=== PATIENT | female | born 1945 | race Caucasian/White ===

== ENCOUNTER 2020-08-12 12:53 | Emergency (ER) | payer MEDICARE, OTHER ==
[~2020-08-12] VITALS: Ht 167.6 cm; Wt 69.0 kg
[2020-08-12] MEDS ORDERED: TRAZ100 PO (13:28)
[2020-08-12] MEDS ORDERED: Cymbalta20 MG PO (13:28)
[2020-08-12] MEDS ORDERED: GABA300 PO (13:28)
[2020-08-12 13:35] LABS: BASOPHILS ABSOLUTE AUTO 0.02 K/mm3 (0.00-0.23); BASOPHILS PERCENT AUTO 0 % (0-2); EOSINOPHILS ABSOLUTE AUTO 0.06 K/mm3 (0.00-0.68); EOSINOPHILS PERCENT AUTO 1 % (0-6); Hematocrit 38.4 % (33.0-51.0); Hemoglobin 13.3 g/dL (11.5-16.0); IMMATURE GRAN ABSOLUTE AUTO 0.03 K/mm3 (0.00-0.10); IMMATURE GRAN PERCENT AUTO 0 % (0-1); LYMPHOCYTES ABSOLUTE AUTO 0.38 K/mm3 (0.84-5.20); LYMPHOCYTES PERCENT AUTO 5 % (21-46); MONOCYTES ABSOLUTE AUTO 0.42 K/mm3 (0.16-1.47); MONOCYTES PERCENT AUTO 6 % (4-13); Mean Corpuscular HGB 32.1 pg (26.0-34.0); Mean Corpuscular HGB Conc 34.6 g/dL (31.5-36.5); Mean Corpuscular Volume 93 fL (80-100); Mean Platelet Volume 10.9 fL (9.1-12.4); NEUTROPHILS ABSOLUTE AUTO 6.27 K/mm3 (1.96-9.15); NEUTROPHILS PERCENT AUTO 87 % (41-73); Platelet Count 241 K/mm3 (150-400); RDW Coefficient Variation 12.6 % (11.7-14.2); Red Blood Cell Count 4.14 M/mm3 (3.80-5.20); White Blood Cell Count 7.18 K/mm3 (4.00-11.30)
[2020-08-12 13:49] LABS: Alanine Aminotransfer (ALT/SGP 30 U/L (12-78); Albumin, Blood 3.6 g/dL (3.4-5.0); Alk Phos 74 U/L (50-136); Anion Gap 8 mmol/L (6-16); Aspartate Aminotrans (AST/SGOT 30 U/L (12-37); Bilirubin, Total 0.6 mg/dL (0.1-1.0); Blood Urea Nitrogen 11 mg/dL (8-24); Bun/Creatinine Ratio 14.1 (12.0-20.0); CO2, Blood 23 mmol/L (21-32); Calcium, Blood 9.1 mg/dL (8.5-10.1); Chloride, Blood 104 mmol/L (98-108); Creatinine, Blood 0.78 mg/dL (0.40-1.00); Globulin, Blood 3.6 g/dL (2.2-4.0); Glomerular Filtration Rate >60 (60-); Glucose, Blood 112 mg/dL (70-99); Potassium, Blood 3.8 mmol/L (3.5-5.5); Sodium, Blood 135 mmol/L (136-145); Total Protein, Blood 7.2 g/dL (6.4-8.2)
[2020-08-12 14:33] LABS: Source, Urine Clean Catch
[2020-08-12 14:36] LABS: Appearance, Urine Hazy (Clear); Bilirubin, Urine Neg (Neg); Blood, Urine 2+ (Neg); Color, Urine Yellow (P-Yellow); Glucose Qualitative, Urine Neg (Neg); Ketones, Urine Neg (Neg); Leukocyte Esterase, Urine 1+ (Neg); Nitrite, Urine Pos (Neg); Protein, Urine 1+ (Neg); Urobilinogen, Urine NORM (Normal)
[2020-08-12 14:43] LABS: Bacteria Many /hpf; Red Blood Cells, Urine Not Seen /hpf (0-2); Squamous Epithelial Cells Not Seen /hpf (Few); White Blood Cells, Urine 0-2 /hpf (0-5)
[2020-08-12] MEDS ORDERED: CEFP200 PO (15:42)
== END 2020-08-12 16:21 | disposition home or self-care (01) ==
LOC: ER 12:53
PROVIDERS: Emergency Medicine
DX: N39.0 Urinary tract infection, site not specified (principal); Z79.899 Other long term (current) drug therapy
CPT/HCPCS: 36415; 70450; 71045; 80053; 81001; 82947; 85025; 87077; 87086; 87186; 93005; 93010; 99285-25; A9270

== ENCOUNTER 2020-08-23 16:07 | Observation (INO) | payer OTHER, MEDICARE ==
[~2020-08-23] VITALS: Ht 165.1 cm; Wt 72.4 kg
[~2020-08-23 16:07] MED LIST: CEFP200 PO; Cymbalta20 MG PO; GABA300 PO; TRAZ100 PO
[2020-08-23 16:45] LABS: BASOPHILS ABSOLUTE AUTO 0.09 K/mm3 (0.00-0.23); BASOPHILS PERCENT AUTO 1 % (0-2); EOSINOPHILS ABSOLUTE AUTO 0.25 K/mm3 (0.00-0.68); EOSINOPHILS PERCENT AUTO 2 % (0-6); Hematocrit 37.4 % (33.0-51.0); Hemoglobin 12.3 g/dL (11.5-16.0); IMMATURE GRAN ABSOLUTE AUTO 0.11 K/mm3 (0.00-0.10); IMMATURE GRAN PERCENT AUTO 1 % (0-1); LYMPHOCYTES ABSOLUTE AUTO 1.01 K/mm3 (0.84-5.20); LYMPHOCYTES PERCENT AUTO 9 % (21-46); MONOCYTES ABSOLUTE AUTO 0.48 K/mm3 (0.16-1.47); MONOCYTES PERCENT AUTO 4 % (4-13); Mean Corpuscular HGB 30.8 pg (26.0-34.0); Mean Corpuscular HGB Conc 32.9 g/dL (31.5-36.5); Mean Corpuscular Volume 94 fL (80-100); Mean Platelet Volume 10.7 fL (9.1-12.4); NEUTROPHILS ABSOLUTE AUTO 9.42 K/mm3 (1.96-9.15); NEUTROPHILS PERCENT AUTO 83 % (41-73); Platelet Count 507 K/mm3 (150-400); RDW Coefficient Variation 12.8 % (11.7-14.2); RDW Standard Deviation 43.9 fL (35.1-46.3); White Blood Cell Count 11.36 K/mm3 (4.00-11.30)
[2020-08-23 16:47] LABS: Source, Urine Clean Catch
[2020-08-23 16:49] LABS: Appearance, Urine Clear (Clear); Bilirubin, Urine Neg (Neg); Blood, Urine Neg (Neg); Color, Urine Yellow (P-Yellow); Glucose Qualitative, Urine Neg (Neg); Ketones, Urine Neg (Neg); Leukocyte Esterase, Urine Neg (Neg); Nitrite, Urine Neg (Neg); Protein, Urine Neg (Neg); Specific Gravity, Urine 1.005 (1.003-1.022); Urobilinogen, Urine NORM (Normal)
[2020-08-23 16:59] LABS: Alanine Aminotransfer (ALT/SGP 19 U/L (12-78); Albumin, Blood 2.5 g/dL (3.4-5.0); Albumin/Globulin Ratio 0.6 (0.8-1.8); Alk Phos 68 U/L (50-136); Anion Gap 7 mmol/L (6-16); Aspartate Aminotrans (AST/SGOT 15 U/L (12-37); Bilirubin, Total 0.6 mg/dL (0.1-1.0); Blood Urea Nitrogen 17 mg/dL (8-24); Bun/Creatinine Ratio 19.5 (12.0-20.0); CO2, Blood 26 mmol/L (21-32); Calcium, Blood 9.2 mg/dL (8.5-10.1); Chloride, Blood 104 mmol/L (98-108); Creatinine, Blood 0.87 mg/dL (0.40-1.00); Globulin, Blood 4.1 g/dL (2.2-4.0); Glomerular Filtration Rate >60 (60-); Glucose, Blood 93 mg/dL (70-99); Potassium, Blood 3.7 mmol/L (3.5-5.5); Sodium, Blood 137 mmol/L (136-145); Total Protein, Blood 6.6 g/dL (6.4-8.2); Troponin I <0.015 ng/mL (0.000-0.040)
[2020-08-23 18:32] LABS: International Normalized Ratio 0.99; Prothrombin Time Results 10.6 Sec (9.7-11.5)
[2020-08-23] MEDS ORDERED: ALEN70 PO (19:01)
[2020-08-23] MEDS ORDERED: CETI5 PO (19:01)
[2020-08-23] MEDS ORDERED: VITAMIN D31000 UNI1 PO (19:01)
[2020-08-23] MEDS ORDERED: Vitamin B-121000 MCG PO (19:01)
[2020-08-23] MEDS ORDERED: Flonase 0.05% N16 GM (19:02)
--- NOTE | 2020-08-24 00:47 | NUR ---
ADMIT ASSESSMENT PT ADMITTED TO ICU , PCU STATUS. PT ARRIVED VIA GURNEY. TRANSFERED TO BED BY STAFF WITH SLIDER SHEET. PT AWAKE, A&O. LUNGS CLEAR ON ROOMAIR. RESP EVEN AND NONLABORED. DENIES SOB OR COUGH. HEART RATE JAELYN IN THE 50'S, BP STABLE. PT TURNING AND MOVING SELF IN BED. PT C/O LOW BACK PAIN 01/03 STATES,"IT IS STARTING TO GET BAD AGAIN". PT MED WITH OXYCODONE. IV 20G TO LEFT AC WITH NS AND 20 KCL AT 75 ML/HR. BT+ ABD SOFT AND NONTENDER DENIES N/V.
[2020-08-24 03:42] LABS: BASOPHILS ABSOLUTE AUTO 0.09 K/mm3 (0.00-0.23); BASOPHILS PERCENT AUTO 1 % (0-2); EOSINOPHILS ABSOLUTE AUTO 0.25 K/mm3 (0.00-0.68); EOSINOPHILS PERCENT AUTO 2 % (0-6); Hematocrit 33.5 % (33.0-51.0); IMMATURE GRAN PERCENT AUTO 1 % (0-1); LYMPHOCYTES ABSOLUTE AUTO 0.99 K/mm3 (0.84-5.20); LYMPHOCYTES PERCENT AUTO 8 % (21-46); MONOCYTES ABSOLUTE AUTO 0.55 K/mm3 (0.16-1.47); MONOCYTES PERCENT AUTO 5 % (4-13); Mean Corpuscular HGB 30.5 pg (26.0-34.0); Mean Corpuscular HGB Conc 32.8 g/dL (31.5-36.5); Mean Corpuscular Volume 93 fL (80-100); Mean Platelet Volume 10.7 fL (9.1-12.4); NEUTROPHILS ABSOLUTE AUTO 10.18 K/mm3 (1.96-9.15); NEUTROPHILS PERCENT AUTO 84 % (41-73); Platelet Count 463 K/mm3 (150-400); RDW Coefficient Variation 12.5 % (11.7-14.2); RDW Standard Deviation 42.8 fL (35.1-46.3); Red Blood Cell Count 3.61 M/mm3 (3.80-5.20); White Blood Cell Count 12.16 K/mm3 (4.00-11.30)
[2020-08-24 04:06] LABS: Anion Gap 8 mmol/L (6-16); Blood Urea Nitrogen 16 mg/dL (8-24); Bun/Creatinine Ratio 19.6 (12.0-20.0); CO2, Blood 24 mmol/L (21-32); Calcium, Blood 8.4 mg/dL (8.5-10.1); Chloride, Blood 105 mmol/L (98-108); Creatinine, Blood 0.82 mg/dL (0.40-1.00); Glomerular Filtration Rate >60 (60-); Glucose, Blood 104 mg/dL (70-99); Potassium, Blood 3.5 mmol/L (3.5-5.5); Sodium, Blood 137 mmol/L (136-145); Troponin I <0.015 ng/mL (0.000-0.040)
--- NOTE | 2020-08-24 04:14 | NUR ---
PAIN MEDS PT STATES,"I JUST CAN'T GET COMFORTABLE". ASSISTED WITH REPOSITIONING. PT STATES,"MY LOW BACK AND HIP ARE REALLY HURTING. THE BED IS TO HARD". PT MED WITH TYLENOL AND OXYCODONE. ALSO, ADJUSTED FIRMNESS OF BED. PT STATES,"THAT IS BETTER ON MY HIP ALREADY".
--- NOTE | 2020-08-24 04:21 | NUR ---
SPO2 PT SPO2 DOWN TO 87% WHILE SLEEPING, PLACED PT ON 2 LITES VIA NC. SPO2 UP TO 95%.
--- NOTE | 2020-08-24 05:50 | NUR ---
SHIFT SUMMARY PT ADMITTED TO ICU 09, PCU STATUS. DX WITH BRADYCARDIA. PT A/O. UP TO BSC WITH STANDBY ASSIST. HEART RATE 50'S WITH STABLE BP. PT TURING AND MOVING SELF IN BED. MED WITH TYLENOL AND OXYCODONE FOR LOW BACK PAIN DURING THE NIGHT WITH GOOD RESULTS. PT NPO FOR POSSIBLE PACEMAKER TODAY. MRI SCREENING DONE. NO ACUTE CHANGE DURING THE NIGHT. REPORT TO ON COMING NURSE.
--- NOTE | 2020-08-24 10:06 | NUR ---
ASSUMING CARE OF PT. REPORT FROM NICKI DOVE. PASTORAL CARE AT BEDSIDE NOW. DR. SHANKS CALLED AND SAID PT CAN EAT BREAKFAST AND WANTS A REPEAT EKG. IF PT GOES TO GET PACEMAKER IT WON'T BE UNTIL LATER THIS AFTERNOON.
--- NOTE | 2020-08-24 11:55 | NUR ---
[facility] care visit conducted. Patient is sitting up in bed and immediately explains about her recent medical issues and says that she is seeing spider webbs and fishing nets coming down around her face. Patient is very clear about those hallucinations not being real. 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 She also talks about her two husbands that and the good relationship she has now with Clifford. She also distinguishes between her estranged older son and her younger son in [facility] in whom she is very close. She shares about her radha and how meaningful it is to her and how she gains strength from it. Patient tells me that she is nervous about what the tests might discover but she is hopeful. I listen empathically, reinforce helpful attitudes and practices and provide pastoral correctional classification counselor and prayer. Patient responds well and shows signs of increased peace and being encouraged in her radha. I will continue to assist patient in coping emotionally/spiritually with the medical issues.
--- NOTE | 2020-08-24 17:43 | NUR ---
SUMMARY PT RESTING IN BED. HAS BEEN UP AND DOWN OOB ALL DAY. NO SYNCOPAL EPISODES. STILL C/O VISION BEING "POOR". PT DESCRIBES IT IF THERE IS A NET IN FRONT OF HER FACE. DR. SHANKS IS UNSURE IF PT WILL NEED A PACEMAKER. AT THIS POINT PT WILL BE OBSERVED UNTIL THURSDAY AND CONTINUE ABX. IF PT HAS ANY SYNCOPAL EPISODES OR SYMPTOMATIC BRADYCARDIA THEN SHE WILL GET A PACEMAKER. NO OTHER CHANGES THIS SHIFT.
--- NOTE | 2020-08-24 19:30 | NUR ---
ASSUMED PT CARE: UPON ENTERING ROOM, PT FOUND TO BE OUT OF BED & WALKING TOWARDS THE TOILET. +EVEN & STEADY GAIT, HOWEVER WHEN REMINDED OF THE IMPORTANCE OF CALLING FOR ASSISTANCE WHEN NEEDING TO USE RESTROOM, PT NODDED EMPHATICALLY "YEAH, YEAH, THEN HELP ME". PT DENIES ANY DIZZINESS OR SOB WHEN AMBULATING. BACK TO BED W/OUT INCIDENT & RADHA BED RAILS RAISED FOR SAFETY. PT IS A&O, APPROPRIATELY INTERACTIVE. CONTINUOUS BOMBSIGHT SPECIALIST IN PLACE, HR 60s. KCl + NS INFUSING W/OUT S/Sx INFILTRATION. WILL CONTINUE TO MONITOR & REPORT APPROPRIATE.
[2020-08-25 02:45] LABS: Source, Urine Clean Catch
[2020-08-25 02:48] LABS: Bilirubin, Urine Neg (Neg); Blood, Urine Neg (Neg); Glucose Qualitative, Urine Neg (Neg); Ketones, Urine Neg (Neg); Leukocyte Esterase, Urine 3+ (Neg); Nitrite, Urine Neg (Neg); Protein, Urine Neg (Neg); Urobilinogen, Urine NORM (Normal)
[2020-08-25 03:11] LABS: Appearance, Urine Hazy (Clear); Color, Urine Yellow (P-Yellow)
[2020-08-25 03:12] LABS: Bacteria Mod /hpf; Red Blood Cells, Urine Not Seen /hpf (0-2); Squamous Epithelial Cells Many /hpf (Few); White Blood Cells, Urine 50-100 /hpf (0-5)
[2020-08-25 03:39] LABS: BASOPHILS ABSOLUTE AUTO 0.12 K/mm3 (0.00-0.23); BASOPHILS PERCENT AUTO 1 % (0-2); EOSINOPHILS ABSOLUTE AUTO 0.21 K/mm3 (0.00-0.68); EOSINOPHILS PERCENT AUTO 2 % (0-6); Hematocrit 32.5 % (33.0-51.0); Hemoglobin 10.3 g/dL (11.5-16.0); IMMATURE GRAN ABSOLUTE AUTO 0.15 K/mm3 (0.00-0.10); IMMATURE GRAN PERCENT AUTO 2 % (0-1); LYMPHOCYTES ABSOLUTE AUTO 1.35 K/mm3 (0.84-5.20); LYMPHOCYTES PERCENT AUTO 15 % (21-46); MONOCYTES ABSOLUTE AUTO 0.52 K/mm3 (0.16-1.47); MONOCYTES PERCENT AUTO 6 % (4-13); Mean Corpuscular HGB 29.5 pg (26.0-34.0); Mean Corpuscular HGB Conc 31.7 g/dL (31.5-36.5); Mean Corpuscular Volume 93 fL (80-100); Mean Platelet Volume 10.3 fL (9.1-12.4); NEUTROPHILS ABSOLUTE AUTO 6.42 K/mm3 (1.96-9.15); NEUTROPHILS PERCENT AUTO 73 % (41-73); Platelet Count 451 K/mm3 (150-400); RDW Coefficient Variation 12.8 % (11.7-14.2); RDW Standard Deviation 43.9 fL (35.1-46.3); Red Blood Cell Count 3.49 M/mm3 (3.80-5.20); White Blood Cell Count 8.77 K/mm3 (4.00-11.30)
[2020-08-25 03:56] LABS: Anion Gap 4 mmol/L (6-16); Blood Urea Nitrogen 9 mg/dL (8-24); Bun/Creatinine Ratio 11.5 (12.0-20.0); CO2, Blood 25 mmol/L (21-32); Calcium, Blood 8.6 mg/dL (8.5-10.1); Chloride, Blood 109 mmol/L (98-108); Creatinine, Blood 0.78 mg/dL (0.40-1.00); Glomerular Filtration Rate >60 (60-); Glucose, Blood 103 mg/dL (70-99); Potassium, Blood 4.4 mmol/L (3.5-5.5); Sodium, Blood 138 mmol/L (136-145)
--- NOTE | 2020-08-25 06:18 | NUR ---
SHIFT SUMMARY: PT CONTINUES TO SLEEP W/ EVEN & UNLABORED RR & SLEPT WELL FOR THE MAJORITY OF THE SHIFT. SHE AWOKE 3 TIMES TO CALL FOR HELP TO THE TOILET. AT THESE TIMES SHE WAS MILDLY CONFUSED, PULLING @ CORDS, & DIGGING IN THE LINENS FOR UNKNOWN OBJECTS. AFTER SEVERAL MINS PT WAS ABLE TO BE REORIENTED & ACKNOWLEDGED SHE "WASN'T THINKING RIGHT". VS REMAINED STABLE THROUGHOUT SHIFT, INCLUDING WHILE AMBULATING FROM BED TO TOILET. NO BRADYCARDIA NOTED & PT DENIED RETURN OF HER DIZZINESS. NO ACUTE NEG CHANGES. WILL CONTINUE TO MONITOR UNTIL REPORT OFF TO ONCOMING RN.
--- NOTE | 2020-08-25 08:36 | NUR ---
PT A/O X4. STATES SHE SLEPT GOOD FROM MIDNIGHT TO PRESENT. PT'S HANDS ARE SWOLLEN THIS AM. PT STATES THIS HAS BEEN AN ONGOING ISSUE. STATES THAT GETTING UP AND MOVING AROUND HELPS WITH STIFFNESS AND SWELLING. PT AMB WELL TO BATHROOM THEN TO CHAIR WITH FWW MINIMAL ASSIST. USING CALL LIGHT APPROPRIATELY. SITTING IN CHAIR FOR BREAKFAST NOW.
--- NOTE | 2020-08-25 10:13 | NUR ---
PT RESTING IN BED NOW. PT WORKED WITH PT THIS AM AND WHILE DOING SO HER RHYTHM CHANGED TO AFIB RVR. GOT PT BACK TO BED AND DID EKG. DR. EDGAR HERE TO SEE PT. CALLED DR. SINHA BUT PT HAD CONVERTED BACK TO SINUS JAELYN BEFORE SPEAKING WITH DR. SINHA. PT WAS ASYMPTOMATIC. DR. SINHA SAID TO KEEP FOLLOWING TREATMENT PLAN FOR NOW AND PT IS SCHEDULED FOR PACEMAKER ON THURSDAY.
--- NOTE | 2020-08-25 18:33 | NUR ---
SUMMARY PT RESTING IN BED. HAS BEEN OOB FOR MEALS AND TO USE BATHROOM. PT STATES HER VISION IS STILL NOT 100% BUT NO DIZZINESS. CONVERTED TO AFIB IN 130'S TODAY WHILE WORKING WITH PHYSICAL THERAPY BUT ONLY LASTED FOR ABOUT 30MINS. DR. SINHA AND DR. EDGAR AWARE. PLANNING FOR PACEMAKER ON THURSDAY. DR. EDGAR WAS GOING TO MAKE SOME PHONE CALLS TODAY TO SEE IF IT CAN BE DONE EARLIER BUT NEVER HEARD ANYTHING BACK. HR 50-60 MOST OF THE DAY. PT USING CALL LIGHT APPROPRIATELY. NO SIGN OF DISTRESS.
--- NOTE | 2020-08-25 20:00 | NUR ---
ASSUMED PT CARE @ 1900: PT LAYING SUPINE IN BED. RR EVEN & UNLABORED. HR UPPER 50s-60s. PT DENIES ANY SOB, OR LIGHTHEADEDNESS. REQUESTS TO WALK TO TOILET. PT ASSISTED TO DANGLE LEGS FROM BED & THEN STANDBY ASSIST TO TOILET. PT TOLERATED WELL & BACK TO BED W/OUT INCIDENT. PT C/O DISCOMFORT, "BURNING" IN RADHA HANDS & FEET. SHE BELIVES THE PAIN IS FROM THE WORSENING EDEMA. PT MEDICATED ACCORDINGLY & DENIES ANY NEEDS @ THIS TIME.
--- NOTE | 2020-08-26 06:21 | NUR ---
SHIFT SUMMARY: PT SLEPT SOUNDLY FOR THE MAJORITY OF THE NIGHT. AWAKING ONLY TO CALL STAFF FOR ASSISTANCE TO THE TOILET. PT INTERMITTENTLY BRADYCARDIC IN THE 50s, HOWEVER PT REMAINED ASYMPTOMATIC & PT DENIED ANY SOB OR DIZZINESS. NO NEG ACUTE CHANGES THIS SHIFT.
--- NOTE | 2020-08-26 09:11 | NUR ---
PT IS SETTING UP IN CHAIR. EATING AND DENIES PAIN OR ANY CURRENT DISTRESS. HR IS LOW 60 RANGE, SBP IS SL ELEVATED AND WILL FOLLOW PT JUST GOT UP.
--- NOTE | 2020-08-26 13:32 | NUR ---
PT REPORT CALLED TO TERRANCE EASON RN AND PT TO TRANSFER TO [facility] VIA W/C. PT TO GO ON TELEMETRT. PT REMAINS A/O AND COOPERATIVE.
[2020-08-26 18:12] LABS: Influenza A, PCR Negative (NEGATIVE); Influenza B, PCR Negative (NEGATIVE); Resp Syncytial Virus, PCR Negative (NEGATIVE); SARS-Cov-2 (COVID-19) PCR, MMC Negative (NEGATIVE)
--- NOTE | 2020-08-26 18:37 | NUR ---
SHIFT SUMMARY PT A TRANSFER FROM ICU TODAY. MEDICATED FOR LEFT LEG/SIDE PAIN X2 THIS AFTERNOON. PT AMBULATED IN HUGHES WITH SON. K-PAD GIVEN TO PT FOR DISCOMFORT IN BACK. PT HAS A GOOD APPETITE. HEART RATE STILL IN 50'S BUT PT HAS NO COMPLAINTS FROM THIS. PLANS FOR PACEMAKER TO BE PLACED TOMORROW. PT IS AWARE SHE IS NPO AFTER MIDNIGHT. NO ACUTE CHANGES. CALL LIGHT IN REACH. WILL CONTINUE TO MONITOR AND REPORT TO ONCOMING RN.
--- NOTE | 2020-08-27 04:32 | NUR ---
SHIFT SUMMARY ASSUMED CARE OF PT AT 1900. PT IS A/OX4. HEART SOUNDS REGULAR. TELE SHOWS SINUS JAELYN @ 50. LUNG SOUNDS CLEAR. PT WAS CONTIENT TO BATHROOM WITH 1P SBA. PT C/O PAIN IN HER L LEG AND BACK, MEDICATED TWICE FOR PAIN. PT COMPLAINS OF NOT SLEEPING WELL. PT HAS BEEN NPO SINCE MIDNIGHT EXCEPT FOR MEDICATIONS. CALL LIGHT IN REACH, BED IN LOWEST POSITION.
--- NOTE | 2020-08-27 10:11 | NUR ---
[facility]ED CARE FROM [facility] PT ARRIVED TO PCU 5 FROM [facility] AT APPROXIMATELY 0900. PT HAS BEEN GIVEN MORNING MEDICATION AND REPORTS SOME PAIN/NEUROPATHY IN HER LEGS. VS STABLE, PT DENIES CHEST PAIN OR PRESSURE. SCANT AMOUNT OF DRAINAGE ON THE PACEMAKER DRESSING OP SITE. PT MAINTAINING SAT ABOVE 92% ON RA. PT RESTING IN BED AT THIS TIME
--- NOTE | 2020-08-27 11:00 | NUR ---
OP SITE PT HAD DUAL CHAMBER PACER PLACED IN THE LEFT CHEST THIS MORNING. SLING IS IN PLACE TO HELP KEEP THE ARM INACTIVE, SCDS ARE IN PLACE TO HELP PREVENT CLOTS. PT DENIES PAIN BUT DOES REPORT A MINOR AMOUNT OF PRESSURE AROUND THE SITE. TELE REPORTS NSR PACED AT 60 bpm. A SCANT AMOUNT OF DRAINAGE IS SEEN ON THE DRESSING BUT HAS NOT INCREASED. NO REDNESS, SWELLING OR PAIN AT OP SITE. PT RESTING AT THIS TIME
--- NOTE | 2020-08-27 18:37 | NUR ---
SHIFT SUMMARY PT HAS BEEN RESTING MOST OF THE AFTERNOON. PT HAS HAD SOME CHEST PRESSURE AND DISCOMFORT AT THE OP SITE FOLLOWING PACER PLACEMENT. PT'S PAIN HAS BEEN MANAGED WITH ICE APPLICATION AND OXYCODONE. VS STABLE, 1 DOSE OF PRN APRESOLINE WAS ADMINISTERED THIS AFTERNOON FOR ELEVATED BP. PT ON RA AND ABLE TO EAT DINNER AND TOLERATE PO. PT IS SBA TO THE BSC OR BATHROOM. SCDS IN PLACE WELL THE SLING ON THE LEFT ARM. PT IS RESTING IN BED AT THIS TIME
--- NOTE | 2020-08-28 07:34 | NUR ---
SHIFT SUMMARY PATIENT PLEASENT AND COOPERATIVE THROUGHOUT THE NIGHT. PATIENT APPEARED TO NAP ON AND OFF LAST NIGHT. PATIENT MEDICATED FOR PAIN PER EMAR. VITAL SIGNS CHARTED. PATIENT VERY EAGER TO GO HOME THIS MORNING, PATIENT STATED, "I AM SO READY TO GO HOME." NO CHANGES FROM INITAL ASSESSMENT OF PACEMAKER SITE THROUGHOUT THE NIGHT. SLING IN PLACE TO LEFT ARM. PATIENT REPORTS SITE IS TENDER BUT THE PAIN IN HER SURGICAL SITE IS "BETTER" THAN IT WAS. VITAL SIGNS CHARTED. REPORT GIVEN TO ONCOMING RN.
--- NOTE | 2020-08-28 09:29 | NUR ---
ASSUMED CARE FROM [facility] RN PT WAS AWAKE AND PARTICIPATED IN MORNING REPORT. PT DENIES CHEST PAIN AND PRESSURE DURING REPORT, BUT IS NOW LATER IN THE MORNING REPORTING SOME PAIN AROUND THE OP SITE. PT HAS BEEN SEEN BY DR. OLIVO THIS AM AND WAS REMINDED NOT TO OVER USE THE LEFT ARM, TREAT IT WITH GENTLE MOVEMENTS AND ACTIVITY. BP WAS ELEVATED THIS MORNING, PT HAS BEEN GIVEN PRN HYDRALIZINE. PT IS CURRENTLY AWAITING DISCHARGE
[2020-08-28] MEDS ORDERED: OXYC5 PO (10:23)
[2020-08-28] MEDS ORDERED: Prinivil10 MG PO (10:24)
--- NOTE | 2020-08-28 11:04 | NUR ---
DISCHARGE PT DISCHARGED VIA WHEELCHAIR AT APPROXIMATELY 1105 ACCOMPANIED BY ALL TERRAIN VEHICLE TECHNICIAN AND ESCORTED TO THE DOOR TO MEET FRIEND AND RETURN HOME. PT LEFT WITH WRITTEN PRESCRIPTION OF OXYCODONE WELL A PRINT OUT OF NEW PRESCRIPTIONS THAT HAVE BEEN SENT TO [facility]. PT LEFT WITH A SLING IN PLACE FOR THE PACEMAKER. AND WAS GIVEN AFTER CARE INSTRUCTIONS. VS STABLE, PT ON RA AND LEFT WITH ALL PERSONAL BELONGINGS.
== END 2020-08-28 11:00 | disposition home or self-care (01) ==
LOC: ER 16:07 → ICUW 16:08 → ERHOLD 16:08 → ICUW 23:35 → MEDS 08-26 13:45 → PCU 08-27 07:50
PROVIDERS: Emergency Medicine; Internal Medicine Interventional Cardiology; Nurse Practitioner Acute Care; ADMIT Internal Medicine
DX: I49.5 Sick sinus syndrome (principal); R53.1 Weakness; I48.91 Unspecified atrial fibrillation; I95.9 Hypotension, unspecified; N39.0 Urinary tract infection, site not specified; R44.1 Visual hallucinations; R44.0 Auditory hallucinations; G89.29 Other chronic pain; M54.9 Dorsalgia, unspecified; I10 Essential (primary) hypertension; G62.9 Polyneuropathy, unspecified; K21.9 Gastro-esophageal reflux disease without esophagitis; F32.9 Major depressive disorder, single episode, unspecified; Z20.822 Contact with and (suspected) exposure to COVID-19; Z88.1 Allergy status to other antibiotic agents; Z79.899 Other long term (current) drug therapy; Z87.891 Personal history of nicotine dependence
CPT/HCPCS: 0241U; 33208; 36415; 70551; 71045; 71046; 76937; 80048; 80053; 81001; 81003; 83735; 83880; 84100; 84443; 84484; 85025; 85610; 85730; 87040; 87086; 93005; 93010; 93306; 96374; 96375; 96376; 97110; 97116; 97162; 97530; 99152; 99153; 99285-25; A9270; C1781; C1785; C1894; C1898; G0378; J0690; J0696; J1644; J2250; J3010; J3480; J7030; J7040

== ENCOUNTER 2020-12-04 12:36 | Inpatient (IN) | payer OTHER, MEDICARE ==
[~2020-12-04] VITALS: Ht 162.6 cm; Wt 63.5 kg
[~2020-12-04 12:36] MED LIST changes: +ALEN70 PO; +CETI5 PO; +Flonase 0.05% N16 GM; +OXYC5 PO; +Prinivil10 MG PO; +VITAMIN D31000 UNI1 PO; +Vitamin B-121000 MCG PO
[2020-12-04 12:59] LABS: Source, Urine Catheter
[2020-12-04 13:07] LABS: Appearance, Urine Cloudy (Clear); Bilirubin, Urine Neg (Neg); Blood, Urine 3+ (Neg); Color, Urine Yellow (P-Yellow); Glucose Qualitative, Urine Neg (Neg); Ketones, Urine 1+ (Neg); Leukocyte Esterase, Urine 3+ (Neg); Nitrite, Urine Pos (Neg); Protein, Urine 3+ (Neg); Urobilinogen, Urine NORM (Normal)
[2020-12-04 13:07] LABS: Hematocrit 39.8 % (33.0-51.0); Hemoglobin 13.6 g/dL (11.5-16.0); Mean Corpuscular HGB 29.4 pg (26.0-34.0); Mean Corpuscular HGB Conc 34.2 g/dL (31.5-36.5); Mean Corpuscular Volume 86 fL (80-100); Mean Platelet Volume 10.5 fL (9.1-12.4); Platelet Count 212 K/mm3 (150-400); RDW Coefficient Variation 13.8 % (11.7-14.2); RDW Standard Deviation 43.2 fL (35.1-46.3); Red Blood Cell Count 4.62 M/mm3 (3.80-5.20); White Blood Cell Count 7.32 K/mm3 (4.00-11.30)
[2020-12-04 13:27] LABS: Albumin, Blood 3.4 g/dL (3.4-5.0); Albumin/Globulin Ratio 0.9 (0.8-1.8); Bilirubin, Total 0.4 mg/dL (0.1-1.0); Bun/Creatinine Ratio 11.1 (12.0-20.0); Calcium, Blood 9.2 mg/dL (8.5-10.1); Creatinine, Blood 1.53 mg/dL (0.40-1.00); Globulin, Blood 3.9 g/dL (2.2-4.0); Potassium, Blood 4.1 mmol/L (3.5-5.5); Total Protein, Blood 7.3 g/dL (6.4-8.2)
[2020-12-04 13:31] LABS: BAND PERCENT MAN 6 % (0-8); BASOPHILS PERCENT MAN 0 % (0-2); EOSINOPHILS ABSOLUTE MAN 0.21 K/mm3 (0.00-0.68); EOSINOPHILS PERCENT MAN 3 % (0-6); LYMPHOCYTES % ATYPICAL MANUAL 3 % (0-0); LYMPHOCYTES ABSOLUTE MAN 0.65 K/mm3 (0.84-5.20); LYMPHOCYTES PERCENT MAN 6 % (21-46); MONOCYTES ABSOLUTE MAN 0.43 K/mm3 (0.16-1.47); MONOCYTES PERCENT MAN 6 % (4-13); SEG NEUTROPHILS PERCENT MAN 76 % (41-73); TOTAL CELLS COUNTED 100
[2020-12-04 13:34] LABS: Bacteria Many /hpf; Mucus Mod (0-Heavy); Squamous Epithelial Cells Rare /hpf (Few)
[2020-12-04 13:35] LABS: Amorphous Heavy (0-Heavy); Renal Epithelial Few /hpf (0-Rare); Transitional Epithelial Cells Few /hpf (0-Rare)
[2020-12-04] MEDS ORDERED: LOSA25 PO (14:04)
--- NOTE | 2020-12-04 18:04 | NUR ---
PT ARRIVED TO ROOM AOX3 WITH CONFUSION. PT HAS BEEN SETTLED INTO BED NO DISTRESS NOTED AT THIS TIME. CALL LIGHT IS WITHIN REACH AND BED ALARM IN PLACE.WILL CONTINUE TO MONITOR.
--- NOTE | 2020-12-05 00:27 | NUR ---
CALLED HOSPITALIST INFORMED HER OF PT'S FEVER. INFORMED HER OF PT'S SWALLOWING DIFFICULTY. [place] TYLENOL ORDERED.
--- NOTE | 2020-12-05 06:13 | NUR ---
CTA/RESEARCH CHEMIST I HAVE ASSESSED THIS PT. I AGREE WITH HER DOCUMENTATION. SHIFT SUMMARY IN RESEARCH CHEMIST NOTES
--- NOTE | 2020-12-05 06:32 | NUR ---
SHIFT SUMMARY ADMITTED FOR UTI/SEPSIS/RENEA/ASPIRATION PNA. FULL CODE. PLAN TO CONTINUE IV ABX, FLUIDS, AND MONITOR LABS. PT HAD SOME DIFFICULTY SWALLOWING HER PM MEDICATIONS. PT GAGGED AND VOMITED UP APPLESAUCE AND SPIT OUT MEDS. PT COMPLAINS OF BEING UNABLE TO SLEEP ALL NIGHT WITHOUT HER MEDICATIONS. PT ON 2 LPM, NOT BASELINE, DUE TO SOB WHEN GOING TO THE RESTROOM. PT HAS BEEN RESTING IN THE ROOM.
[2020-12-05 07:12] LABS: Hematocrit 41.5 % (33.0-51.0); Hemoglobin 13.4 g/dL (11.5-16.0); Mean Corpuscular HGB 28.8 pg (26.0-34.0); Mean Corpuscular HGB Conc 32.3 g/dL (31.5-36.5); Mean Corpuscular Volume 89 fL (80-100); Mean Platelet Volume 11.4 fL (9.1-12.4); Platelet Count 182 K/mm3 (150-400); RDW Coefficient Variation 13.9 % (11.7-14.2); RDW Standard Deviation 45.1 fL (35.1-46.3); Red Blood Cell Count 4.66 M/mm3 (3.80-5.20); White Blood Cell Count 5.51 K/mm3 (4.00-11.30)
[2020-12-05 07:48] LABS: Albumin, Blood 3.1 g/dL (3.4-5.0); Albumin/Globulin Ratio 0.8 (0.8-1.8); Bilirubin, Total 0.4 mg/dL (0.1-1.0); Bun/Creatinine Ratio 10.8 (12.0-20.0); Calcium, Blood 9.1 mg/dL (8.5-10.1); Creatinine, Blood 1.11 mg/dL (0.40-1.00); Globulin, Blood 3.7 g/dL (2.2-4.0); Potassium, Blood 3.9 mmol/L (3.5-5.5); Total Protein, Blood 6.8 g/dL (6.4-8.2)
[2020-12-05 08:16] LABS: BAND PERCENT MAN 6 % (0-8); BASOPHILS ABSOLUTE MAN 0.05 K/mm3 (0.00-0.23); BASOPHILS PERCENT MAN 1 % (0-2); EOSINOPHILS ABSOLUTE MAN 0.33 K/mm3 (0.00-0.68); EOSINOPHILS PERCENT MAN 6 % (0-6); LYMPHOCYTES % ATYPICAL MANUAL 1 % (0-0); LYMPHOCYTES ABSOLUTE MAN 0.93 K/mm3 (0.84-5.20); LYMPHOCYTES PERCENT MAN 16 % (21-46); MONOCYTES ABSOLUTE MAN 0.05 K/mm3 (0.16-1.47); MONOCYTES PERCENT MAN 1 % (4-13); NEUTROPHILS ABSOLUTE MAN 4.13 K/mm3 (1.96-9.15); SEG NEUTROPHILS PERCENT MAN 69 % (41-73); TOTAL CELLS COUNTED 100
--- NOTE | 2020-12-05 15:36 | NUR ---
Spiritual care visit conducted. Patient is confused at times and more clear at others. Patient talks about the events that led to her hospitalization, and her current symptoms. She talks about her emotions and how all these medical issues are effecting her. I normalize her experience and companionship and a calming presence. Patient responds well and shos signs of reduced stress and fear. Spiritual care will remain available.
--- NOTE | 2020-12-05 18:17 | NUR ---
PATIENT ALERT WITH CONFUSION AND FORGETFULNESS. SEEMS TO BE ABLE TO SELF TRANSFER FROM HOSPITAL BED TO BSC INDEPENDENTLY. CONTINUES ON IV ABX WITHOUT S/SX ADVERSE REACTIONS NOTED OR REPORTED. HAD A FEVER THIS AFTERNOON; RECHECKED IT A BIT LATER AND IT RESOLVED ON IT'S OWN. SON VISITED FOR SEVERAL HOURS THIS AFTERNOON. PATIENT IN ROOM EATING DINNER AT THIS TIME. CALL LIGHT IN REACH.
--- NOTE | 2020-12-06 05:09 | NUR ---
SHIFT SUMMARY: FEBRILE, TEMP HIGH 101.8 TONIGHT. TYLENOL GIVEN. SBP 168 THIS AM, WILL ADMINISTER HYDRALAZINE PER ORDERS. MAINTAINING 02 SATS 92% AND HIGHER ON RA. NO COUGHING. LS DIM. DENIES PAIN. MAINTENANCE IV FLUIDS INFUSING. IV ABT ADMINISTERED. UP INDEPENDENTLY TO BSC. NO ACUTE OVERNIGHT EVENTS. WCTM.
--- NOTE | 2020-12-06 12:46 | NUR ---
Spiritual care visit conducted. Patient is much more clear today and in a much better mood. Patient tells me about her "friend" Clifford, about her sikh in [place] that is part of the [employer] and about her spiritual journey. She speaks much more positively about her patient experience now that her night time medications are rectified. I normalize patient's struggles, highlight her strength in overcoming difficulties and provide prayer. Patient responds well and shows signs of being encouraged in her radha. Spiritual care will continue to remain available.
--- NOTE | 2020-12-06 17:53 | NUR ---
Met with pt and her son today. wanted to know if pt had any "new problems" that have caused this hospitization. Explained this was both pneumonia and UTi, so it does't seem to be a new diagnosis.
--- NOTE | 2020-12-06 18:15 | NUR ---
SHIFT SUMMARY- PT IS A/O, PLESANT AND COOPERATIVE. SHE IS EATING AND DRINKING WELL THIS SHIFT. SHE TOOK A SHOWER THIS AFTERNOON AND HAD DIFFICULTY CATCHING HER BRETH AFTERWARDS. ORDERED PRN BREATHING TREATMENTS. HER VS REMAINED STABLE. HER 02 DID DROP INTO THE 70'S AFTRER HER SHOWER AND SHE WAS PLACED BACK ON O2. SHE APPERED LESS LUCID THIS AFTERNOON, GIVING ONE ANSWER RESPONSES. HER BED IS IN THE LOW POSITION AND CALL LIGHT IS WITIN REACH.
--- NOTE | 2020-12-06 20:11 | NUR ---
CALL TO HOSPITALIST / RESP DISTRESS RESPS 36/MIN. PT DISTRESSED AND CONSTANTLY CHANGING POSITIONS. 02 93% ON 2L VIA NC. BP 163/106, TEMP 102.4. LS W/ FINE CRACKLES THROUGHOUT. NO EDEMA TO BLE. NO COUGH. SPOKE W/ DR. SHEFFIELD. RECEIVED ORDER TO ADMINISTER FUROSEMIDE 40MG IV OT. D/C IV FLUIDS.
[2020-12-07 05:03] LABS: Hematocrit 35.7 % (33.0-51.0); Mean Corpuscular HGB 28.6 pg (26.0-34.0); Mean Corpuscular HGB Conc 33.6 g/dL (31.5-36.5); Mean Corpuscular Volume 85 fL (80-100); Mean Platelet Volume 11.5 fL (9.1-12.4); Platelet Count 111 K/mm3 (150-400); RDW Coefficient Variation 13.8 % (11.7-14.2); RDW Standard Deviation 42.9 fL (35.1-46.3); White Blood Cell Count 7.64 K/mm3 (4.00-11.30)
[2020-12-07 05:26] LABS: Albumin, Blood 2.7 g/dL (3.4-5.0); Anion Gap 8 mmol/L (6-16); Blood Urea Nitrogen 10 mg/dL (8-24); Bun/Creatinine Ratio 10.7 (12.0-20.0); CO2, Blood 26 mmol/L (21-32); Calcium, Blood 8.5 mg/dL (8.5-10.1); Chloride, Blood 102 mmol/L (98-108); Creatinine, Blood 0.93 mg/dL (0.40-1.00); Glomerular Filtration Rate >60 (60-); Glucose, Blood 111 mg/dL (70-99); Phosphorus, Blood 3.6 mg/dL (2.5-4.9); Potassium, Blood 3.1 mmol/L (3.5-5.5); Sodium, Blood 136 mmol/L (136-145)
--- NOTE | 2020-12-07 05:58 | NUR ---
SHIFT SUMMARY: AFEB THIS AM. 02 98% ON RA. RESPS NON-LABORED, EVEN. NO COUGHING. NO EDEMA. VOIDING FREQUENTLY AFTER IV FUROSEMIDE. REPORTS DIARRHEA IS IMPROVING. IV ABT INFUSED PER ORDERS. DENIES PAIN. SLEPT INTERMITTENTLY THROUGH THE NIGHT. WCTM.
--- NOTE | 2020-12-07 17:57 | NUR ---
Shift Summary A/O x3, forgetful. C/O "the usual chest heaviness" that has been ongoing for 2-3 weeks now. Denied need for any pain meds. Temp spiked to 103, medicated for febrile with some improvement. Still dyspneic with exertion. Crackles in middle and lower lobes. Remains on 2L O2, patient frequently removes NC. Frequent reminders to keep O2 on. Patient still having loose stools, but also reported some soft stools this morning. Potassium still infusing at slow rate d/t discomfort of med. WCTM and report to oncoming RN.
--- NOTE | 2020-12-08 03:23 | NUR ---
SHIFT SUMMARY PATIENT HAD NO ACUTE CHANGES OBSERVED. AXOX 3 WITH CONFUSION AT TIMES. ONE ASSIST TO BSC. TAKES MEDICATION X ONE EACH. ON 2L O2 NC AND PULLS OFF AT TIMES. IV POTASSIUM INFUSED AT A SLOW RATE R/T DISCOMFORT OF INFUSION. PATIENT TOLERATED. VSS WITH LOW GRADE TEMP. DENIES SOB AND N/V. PIV REMAINS INTACT. IV ABX INFUSED. CALL LIGHT IN REACH. BED IN LOWEST POSITION. WILL CONTINUE TO MONITOR UNTIL DAY SHIFT NURSE ASSUMES CARE.
[2020-12-08 04:54] LABS: Hematocrit 35.1 % (33.0-51.0); Hemoglobin 12.1 g/dL (11.5-16.0); Mean Corpuscular HGB 28.8 pg (26.0-34.0); Mean Corpuscular HGB Conc 34.5 g/dL (31.5-36.5); Mean Corpuscular Volume 84 fL (80-100); Mean Platelet Volume 12.3 fL (9.1-12.4); Platelet Count 125 K/mm3 (150-400); RDW Standard Deviation 42.5 fL (35.1-46.3); White Blood Cell Count 8.46 K/mm3 (4.00-11.30)
[2020-12-08 05:33] LABS: Albumin, Blood 2.6 g/dL (3.4-5.0); Anion Gap 7 mmol/L (6-16); Blood Urea Nitrogen 11 mg/dL (8-24); Bun/Creatinine Ratio 13.6 (12.0-20.0); CO2, Blood 24 mmol/L (21-32); Calcium, Blood 8.8 mg/dL (8.5-10.1); Chloride, Blood 101 mmol/L (98-108); Creatinine, Blood 0.81 mg/dL (0.40-1.00); Glomerular Filtration Rate >60 (60-); Glucose, Blood 104 mg/dL (70-99); Phosphorus, Blood 2.6 mg/dL (2.5-4.9); Potassium, Blood 3.5 mmol/L (3.5-5.5); Sodium, Blood 132 mmol/L (136-145)
--- NOTE | 2020-12-08 19:14 | NUR ---
a+o, up on own in rm but calls appropriatly, call light in reach, sitting up in chair since dinner,rm air, 02 has been steady on rm air for majority of shift, saline locked, bsr shared with noc nurse and pt
--- NOTE | 2020-12-09 04:28 | NUR ---
SHIFT SUMMARY PATIENT HAD NO ACUTE CHANGES OBSERVED. AXOX 3 AND SBA TO BATHROOM. PIV REMAINS INTACT. IV ABX INFUSED. ON 2L O2 NC. TAKES MEDICATION WHOLE X ONE EACH WITH WATER. VSS/AFEBRILE. DENIES PAIN, SOB, AND N/V. COOPERATIVE WITH CARE. PATIENT ABLE TO SLEEP MOST OF THE SHIFT. CALL LIGHT IN REACH. BED IN LOWEST POSITION. WILL CONTINUE TO MONITOR UNTIL DAY SHIFT NURSE ASSUMES CARE.
[2020-12-09 05:24] LABS: Albumin, Blood 2.3 g/dL (3.4-5.0); Anion Gap 7 mmol/L (6-16); Blood Urea Nitrogen 7 mg/dL (8-24); Bun/Creatinine Ratio 9.1 (12.0-20.0); CO2, Blood 26 mmol/L (21-32); Calcium, Blood 8.7 mg/dL (8.5-10.1); Chloride, Blood 103 mmol/L (98-108); Creatinine, Blood 0.77 mg/dL (0.40-1.00); Glomerular Filtration Rate >60 (60-); Glucose, Blood 92 mg/dL (70-99); Phosphorus, Blood 2.6 mg/dL (2.5-4.9); Sodium, Blood 136 mmol/L (136-145)
[2020-12-09] MEDS ORDERED: METO25 PO (13:34)
[2020-12-09] MEDS ORDERED: AMOCLA875 PO (13:35)
[2020-12-09] MEDS ORDERED: ASPI81CH PO (13:36)
[2020-12-09] MEDS ORDERED: VISBIOME 112.51 EACH PO (13:38)
== END 2020-12-09 15:05 | disposition home health service (06) | DRG 871 ==
LOC: ER 12:36 → MEDS 15:13
PROVIDERS: Emergency Medicine; Nurse Practitioner Acute Care; ADMIT Internal Medicine
DX: A41.51 Sepsis due to Escherichia coli [E. coli] (principal); G92 Toxic encephalopathy; J96.01 Acute respiratory failure with hypoxia; J18.9 Pneumonia, unspecified organism; N39.0 Urinary tract infection, site not specified; N17.9 Acute kidney failure, unspecified; E87.2 Acidosis; E87.1 Hypo-osmolality and hyponatremia; R65.20 Severe sepsis without septic shock; E87.6 Hypokalemia; E86.0 Dehydration; R59.0 Localized enlarged lymph nodes; I10 Essential (primary) hypertension; I48.0 Paroxysmal atrial fibrillation; F32.9 Major depressive disorder, single episode, unspecified; I49.5 Sick sinus syndrome; G62.9 Polyneuropathy, unspecified; M54.9 Dorsalgia, unspecified; G89.29 Other chronic pain; K21.9 Gastro-esophageal reflux disease without esophagitis; Z88.1 Allergy status to other antibiotic agents; Z79.899 Other long term (current) drug therapy; Z98.890 Other specified postprocedural states; Z90.710 Acquired absence of both cervix and uterus; Z95.0 Presence of cardiac pacemaker; Z90.49 Acquired absence of other specified parts of digestive tract; Z90.711 Acquired absence of uterus with remaining cervical stump; Z90.89 Acquired absence of other organs
CPT/HCPCS: 36415; 71045; 71046; 71260; 74177; 80053; 80069; 81001; 82550; 83605; 83735; 83880; 84145; 85025; 85027; 87040; 87077; 87086; 87186; 92610; 93005; 93010; 94640; 94760; 96365; 97110; 97116; 97162; 99285-25; A9270; J0295; J0456; J0696; J1644; J1940; J3480; J7030; J7050; Q9967